=== PATIENT | male | born 1985 | race Caucasian/White ===

== ENCOUNTER 2016-11-30 18:15 | Emergency (ER) | payer OTHER ==
[~2016-11-30] VITALS: Ht 149.9 cm; Wt 89.4 kg
[2016-11-30] MEDS ORDERED: IV NORMAL SALINE 1,000ML 1,000 ML IV SCH (18:36)
--- NOTE | 2016-11-30 18:36 | PHYS DOC ---
Past History Past Medical History: GERD Past Surgical History: Tonsillectomy Smoking: Cigarettes Alcohol Use: Occasionally Drug Use: None Adult General Chief Complaint Chief Complaint: NAUSEA/VOMITING/DIARRHEA HPI HPI Patient is a 31 year old MALE who presents with nausea, vomiting and diarrhea. Started at 0400 am with a temp of 101. Right ear ache and a little cough. No sore throat .He then developed nausea, vomited once and has had 4 watery stools ; no blood. No recent travel, no sick contacts, possible bad food exposure after eating out. He last took ibuprofen at 1530 PM and tylenol at 1530 Pm. He did see his PCP and was given "nausea medication." He doesn't feel any better however. Review of Systems Review of Systems Constitutional: fever Eyes: Denies change in visual acuity, redness, or eye pain HENT: Denies nasal congestion or sore throat; right ear ache Respiratory: slight non productive cough but no shortness of breath [] Cardiovascular: No additional information not addressed in HPI ; no chest pain. GI: see HPI. No abdominal pain. : Denies dysuria or hematuria Musculoskeletal: Denies back pain or joint pain Integument: Denies rash or skin lesions Neurologic: Denies headache, focal weakness or sensory changes . no syncope Endocrine: Denies polyuria or polydipsia Allergies Allergies Allergies Coded Allergies Type Severity Reaction Last Updated Verified No Known Drug Allergies 11/07/15 No Physical Exam Physical Exam Constitutional: Well developed, well nourished, no acute distress, non-toxic appearance. HENT: Normocephalic, atraumatic, bilateral external ears normal, oropharynx moist, no oral exudates, nose normal. Eyes: PERRLA, EOMI, conjunctiva normal, no discharge. Neck: Normal range of motion, no tenderness, supple, no stridor. Cardiovascular:Heart rate regular rhythm tachycardic no murmur Lungs & Thorax: Bilateral breath sounds clear to auscultation Abdomen: Bowel sounds normal, soft, no tenderness, no masses, no pulsatile masses. No rebound or guarding. Skin: Warm, dry, no erythema, no rash. Back: No tenderness, no CVA tenderness. Extremities: No tenderness, no cyanosis, no clubbing, ROM intact, no edema. Neurologic: Alert and oriented X 3, normal motor function, normal sensory function, no focal deficits noted. Psychologic: Affect normal, judgement normal, mood normal. Current Patient Data Vital Signs Vital Signs Date Time Temp Pulse Resp B/P (MAP) Pulse Ox O2 Delivery O2 Flow Rate FiO2 11/30/16 18:25 100.0 106 16 95 Room Air 134/71 Lab Results Laboratory Tests Test 11/30/16 19:10 White Blood Count 11.7 x10^3/uL Red Blood Count 5.31 x10^6/uL Hemoglobin 16.0 g/dL Hematocrit 46.4 % Mean Corpuscular Volume 88 fL Mean Corpuscular Hemoglobin 30 pg Mean Corpuscular Hemoglobin Concent 34 g/dL Red Cell Distribution Width 13.4 % Platelet Count 193 x10^3/uL Neutrophils (%) (Auto) 85 % Lymphocytes (%) (Auto) 7 % Monocytes (%) (Auto) 8 % Eosinophils (%) (Auto) 0 % Basophils (%) (Auto) 0 % Neutrophils # (Auto) 9.9 x10^3uL Lymphocytes # (Auto) 0.8 x10^3/uL Monocytes # (Auto) 1.0 x10^3/uL Eosinophils # (Auto) 0.0 x10^3/uL Basophils # (Auto) 0.0 x10^3/uL Sodium Level 139 mmol/L Potassium Level 3.6 mmol/L Chloride Level 102 mmol/L Carbon Dioxide Level 27 mmol/L Anion Gap 10 Blood Urea Nitrogen 12 mg/dL Creatinine 1.2 mg/dL Estimated GFR (Cockcroft-Gault) 71.1 Glucose Level 104 mg/dL Calcium Level 9.1 mg/dL Lipase 133 U/L Current Medications Medications (Trade) Dose Ordered Sig/Maribell Route PRN Reason Start Time Stop Time Status Last Admin Dose Admin Sodium Chloride 1,000 ml @ 1,000 mls/hr Q1H IV 11/30/16 18:36 11/30/16 19:36 DC 11/30/16 18:36 Ondansetron HCl (Zofran) 4 mg 1X ONCE IV 11/30/16 19:00 11/30/16 19:01 DC 11/30/16 19:00 Course & Med Decision Making Course & Med Decision Making Pertinent Labs and Imaging studies reviewed. (See chart for details) Patient with findings c/w viral syndrome. IV fluids established. Non toxic appearing. lab checked. lab was unremarkable (mild elev in WBC); home w zofran. work note Diff Dx: gastroenteritis; viral syndrome; colitis Dragon Disclaimer Dragon Disclaimer This chart was dictated in whole or in part using Voice Recognition software in a busy, high-work load, and often noisy Emergency Department environment. It may contain unintended and wholly unrecognized errors or omissions. Departure Departure: Impression: Primary Impression: Gastroenteritis Disposition: 01 HOME, SELF-CARE Condition: GOOD Referrals: VITALIY GARCIA MD (PCP) Patient Instructions: Viral Gastroenteritis Scripts Ondansetron (ZOFRAN ODT) 8 Mg Tab.rapdis 8 MG PO TID PRN Y for NAUSEA, #10 Prov: JANETH SANCHEZ MD 11/30/16 JANETH SANCHEZ MD November 30, 2016 18:36
[2016-11-30] MEDS ORDERED: ONDANSETRON PF 4 MG/2 ML VIAL. IV ONE (19:00)
[2016-11-30 19:35] LABS: BASO % 0 % (0-3); EOS % 0 % (0-3); HEMATOCRIT 46.4 % (39.0-53.0); LYMPH # 0.8 x10^3/uL (1.0-4.8); LYMPH % 7 % (24-48); MEAN CORPUSCULAR HEMOGLOBIN 30 pg (25-35); MEAN CORPUSCULAR HGB CONC 34 g/dL (31-37); MEAN CORPUSCULAR VOLUME 88 fL (79-100); MONO % 8 % (0-9); NEUT # 9.9 x10^3uL (1.8-7.7); NEUT % 85 % (31-73); PLATELET COUNT 193 x10^3/uL (140-400); RED BLOOD COUNT 5.31 x10^6/uL (4.30-5.70); RED CELL DISTRIBUTION WIDTH 13.4 % (11.5-14.5); WHITE BLOOD COUNT 11.7 x10^3/uL (4.0-11.0)
[2016-11-30 19:40] LABS: CALCIUM 9.1 mg/dL (8.5-10.1); CREATININE 1.2 mg/dL (0.7-1.3); GFR 71.1; POTASSIUM 3.6 mmol/L (3.5-5.1)
[2016-11-30 20:25] VITALS: BP 126/63
[2016-11-30] MEDS ORDERED: ONDA8TAB12 PO (20:27)
== END 2016-11-30 20:45 | disposition home or self-care (01) ==
LOC: ER 18:15
DX: K52.9 Noninfective gastroenteritis and colitis, unspecified (principal); K21.9 Gastro-esophageal reflux disease without esophagitis; F17.210 Nicotine dependence, cigarettes, uncomplicated
CPT/HCPCS: 36415; 80048; 83690; 85027; 96361; 96374; 99284; J2405; J7030

== ENCOUNTER 2021-06-15 08:31 | Emergency (ER) | payer OTHER, BC ==
[~2021-06-15] VITALS: Ht 172.7 cm; Wt 81.0 kg
[~2021-06-15 08:31] MED LIST: ONDA8TAB12 PO
[2021-06-15 08:46] VITALS: BP 136/83
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
[2021-06-15] MEDS ORDERED: KETOROLAC 60 MG/2 ML VIAL. IM ONE (09:30)
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
== END 2021-06-15 09:50 | disposition home or self-care (01) ==
LOC: ER 08:31
DX: S80.02XA Contusion of left knee, initial encounter (principal); K21.9 Gastro-esophageal reflux disease without esophagitis; F17.210 Nicotine dependence, cigarettes, uncomplicated; V43.52XA Car driver injured in collision with other type car in traffic accident, initial encounter; Y93.I9 Activity, other involving external motion; Y92.89 Other specified places as the place of occurrence of the external cause; Y99.8 Other external cause status
CPT/HCPCS: 73564; 96372; 99283; J1885